=== PATIENT | female | born 1960 | race Caucasian/White ===

== ENCOUNTER → 2017-07-23 | Day surgery (SDC) | payer OTHER ==
[~2017-07-23] MED LIST: ACETAMINOPHEN/HYDROcodone 325 MG/5 MG TAB ONE; BUPIVACAINE/EPINEPHRINE 0.5% PF 30 ML VIAL INFIL ONE; EPINEPHrine HCL (1:1000) 1 MG/ML VIAL OTHER ONE; KETOROLAC TROMETHAMINE 30 MG/ML (IVP) VIAL IV PUSH ONE; LACTATED RINGER'S 1000 ML INJ 500 ML IV ONE; MIDAZOLAM HCL 2 MG/2 ML VIAL ONE; ONDANSETRON HCL 4 MG/2 ML VIAL IV PUSH ONE; PROPOFOL 200 MG/20 ML AMP IV ONE; Z.0.NO CURRENT MEDS; ceFAZolin INJ 1,000 MG VIAL ONE
--- NOTE | 2017-07-24 10:56 | MP ---
cc: LM CHRIS M.D. DATE OF SURGERY 07/23/2017 PREOPERATIVE DIAGNOSIS Left knee medial and lateral meniscus tear. POSTOPERATIVE DIAGNOSES Left knee medial and lateral meniscus tear. PROCEDURE Left knee arthroscopic partial medial and lateral meniscectomy. SURGEON Dr. Lm Chris ANESTHESIA General REVIEW OF SYSTEMS Less than 10 cc TOURNIQUET TIME Zero minutes COMPLICATIONS None JUSTIFICATION The patient is a 56-year-old female who injured her left knee. She has had persistent symptoms of pain in regards to her condition, failure of conservative treatment. Clinical exam as well as MRI confirmed the above-named findings. The patient was counseled as to the risks, benefits and alternatives to the above-named proposed surgical procedure. She did wish to surgery. PROCEDURE IN DETAIL A written consent was obtained. The patient identified by name, taken to the operating room, placed supine on operating room table, general anesthesia was administered, as well as one gram of IV Ancef. The left thigh carefully placed in a well-padded leg dotson. The left lower tree prepped and draped using Isopropyl alcohol, Hibiclens solution and DuraPrep solution. After a time-out was performed, standard medial and lateral parapatellar arthroscopic portals were established. The patellofemoral joint revealed grade 2 chondromalacia. The medial compartment revealed a very large complex tear of the posterior horn of the medial meniscus extending to the midbody. An arthroscopic biter, followed by an arthroscopic shaver was introduced into the medial compartment to perform a partial medial meniscectomy. The meniscal rim was probed and noted to be stable. There was evidence of diffuse grade 2 and grade 3 chondromalacia changes in the medial femoral condyle as well as grade 2, grade 3 and an area of focal grade 4 chondromalacia of the lateral tibial plateau. The intercondylar revealed the anterior and posterior cruciate ligaments to be intact. The lateral compartment revealed a midbody tear of the lateral meniscus extending into the anterior and posterior horns. An arthroscopic biter, followed by an arthroscopic shaver was introduced into the lateral compartment to perform a partial lateral meniscectomy. There was evidence of some early grade 2 chondromalacia changes in the lateral femoral condyle. At the conclusion of the surgical procedure, 30 cc of 0.5% Marcaine with epinephrine was injected into the knee joint. The arthroscopic portals were closed with 3-0 Prolene sutures. Sterile dressings were applied. The patient tolerated the procedure well. No intraoperative complications were noted. MD ALLEN Garcia/RAFAEL /3:57 PM /10:47 AM
== END | disposition home or self-care (01) ==
LOC: ESDC 13:16
PROVIDERS: ATTEND Orthopaedic Surgery Sports Medicine
DX: S83.232A Complex tear of medial meniscus, current injury, left knee, initial encounter (principal); S83.282A Other tear of lateral meniscus, current injury, left knee, initial encounter; M94.262 Chondromalacia, left knee
CPT/HCPCS: 01400; 29880; J0171; J0690; J1885; J2250; J2405; J3010; J7120